=== PATIENT | male | born 1960 | race Caucasian/White ===

== ENCOUNTER → 2018-08-15 | Outpatient (CLI) | payer MEDICARE | END | disposition home or self-care (01) | LOC: LAB SHORT 15:48 → LAB EV 15:48 | DX: L72.3 Sebaceous cyst (principal) | CPT/HCPCS: 87070; 87075; 87205 ==

== ENCOUNTER 2020-08-23 21:11 | Emergency (ER) | payer MEDICARE ==
[~2020-08-23] VITALS: Ht 180.3 cm; Wt 162.4 kg
[2020-08-23 21:42] LABS: Source, Urine Voided
[2020-08-23 21:49] LABS: Bilirubin, Urine Neg (Neg); Blood, Urine Neg (Neg); Glucose Qualitative, Urine Neg (Neg); Ketones, Urine Neg (Neg); Leukocyte Esterase, Urine Neg (Neg); Nitrite, Urine Neg (Neg); Protein, Urine Neg (Neg); Urobilinogen, Urine NORM (Normal)
[2020-08-23 21:56] LABS: Appearance, Urine Clear (Clear); Color, Urine Yellow (P-Yellow)
[2020-08-23] MEDS ORDERED: CYCL10 PO (23:16)
[2020-08-23] MEDS ORDERED: PRED20 PO (23:16)
== END 2020-08-23 23:28 | disposition home or self-care (01) ==
LOC: ER 21:11
PROVIDERS: Physician Assistant
DX: M54.16 Radiculopathy, lumbar region (principal); Z86.711 Personal history of pulmonary embolism
CPT/HCPCS: 72100; 72170; 81003; 99283-25; A9270

== ENCOUNTER → 2023-03-12 | Outpatient (CLI) | payer MEDICARE ==
[~2023-03-12] MED LIST: CYCL10 PO; PRED20 PO
[2023-03-12 16:29] LABS: BASOPHILS ABSOLUTE AUTO 0.07 K/mm3 (0.00-0.23); BASOPHILS PERCENT AUTO 1 % (0-2); EOSINOPHILS ABSOLUTE AUTO 0.12 K/mm3 (0.00-0.68); EOSINOPHILS PERCENT AUTO 1 % (0-6); Hematocrit 53.4 % (37.0-53.0); Hemoglobin 17.9 g/dL (13.5-17.5); IMMATURE GRAN ABSOLUTE AUTO 0.02 K/mm3 (0.00-0.10); IMMATURE GRAN PERCENT AUTO 0 % (0-1); LYMPHOCYTES ABSOLUTE AUTO 1.86 K/mm3 (0.84-5.20); LYMPHOCYTES PERCENT AUTO 20 % (21-46); MONOCYTES ABSOLUTE AUTO 0.59 K/mm3 (0.16-1.47); MONOCYTES PERCENT AUTO 6 % (4-13); Mean Corpuscular HGB 31.2 pg (26.0-34.0); Mean Corpuscular HGB Conc 33.5 g/dL (31.5-36.5); Mean Corpuscular Volume 93 fL (80-100); Mean Platelet Volume 11.9 fL (9.1-12.4); NEUTROPHILS ABSOLUTE AUTO 6.82 K/mm3 (1.96-9.15); NEUTROPHILS PERCENT AUTO 72 % (41-73); Platelet Count 156 K/mm3 (150-400); RDW Coefficient Variation 12.2 % (11.7-14.2); RDW Standard Deviation 41.8 fL (35.1-46.3); Red Blood Cell Count 5.74 M/mm3 (4.30-5.90); White Blood Cell Count 9.48 K/mm3 (4.00-11.30)
[2023-03-12 18:30] LABS: Albumin, Blood 4.5 g/dL (3.4-5.0); Albumin/Globulin Ratio 1.2 (0.8-1.8); Bun/Creatinine Ratio 11.7 (12.0-20.0); Calcium, Blood 9.4 mg/dL (8.5-10.1); Creatinine, Blood 0.94 mg/dL (0.60-1.20); Globulin, Blood 3.8 g/dL (2.2-4.0); Potassium, Blood 3.8 mmol/L (3.5-5.5); Total Protein, Blood 8.3 g/dL (6.4-8.2)
== END ==
LOC: LAB SHORT 14:00 → LAB 14:00
PROVIDERS: Student in an Organized Health Care Education/Training Program
DX: I10 Essential (primary) hypertension (principal)
CPT/HCPCS: 80053; 85025

== ENCOUNTER 2023-08-15 14:15 | Emergency (ER) | payer OTHER ==
[~2023-08-15] VITALS: Ht 180.3 cm; Wt 156.5 kg
[2023-08-15] MEDS ORDERED: HYDROmorphone HCl/Pf 1MG SYR IV ONE (15:20)
[2023-08-15] MEDS ORDERED: Ondansetron HCl 2 MG / ML 2ML Vial IV ONE (15:20)
[2023-08-15] MEDS ORDERED: HYDR1TAB94 PO (17:33)
[2023-08-15 18:23] VITALS: BP 159/96
== END 2023-08-15 18:18 | disposition home or self-care (01) ==
LOC: ER 14:15
DX: M16.12 Unilateral primary osteoarthritis, left hip (principal); W18.30XA Fall on same level, unspecified, initial encounter; Z79.52 Long term (current) use of systemic steroids
CPT/HCPCS: 72170; 72192; J1170; J2405